=== PATIENT | female | born 1965 | race Caucasian/White ===

== ENCOUNTER → 2018-06-14 | Outpatient (CLI) | payer BC ==
--- NOTE | 2018-06-15 15:12 | NM ---
EXAMINATION TYPE: NM bone scan whole body DATE OF EXAM: 06/14/2018 COMPARISON: Lumbar spine and thoracic spine from outside institution 06/12/2017 HISTORY: Back pain Delayed whole-body scanning was performed following the injection of 23.7 mCi Tc 99m MDP. Images acq uired 3 hours post injection. FINDINGS: Mild uptake in the thoracic and lumbar spine is likely due to underlying spondylosis. Soft tissue upt kayla is normal. Uptake within the shoulders, wrists, knees, sternoclavicular joints, ankles and the fe et is likely degenerative. Uptake in the maxilla and mandible likely due to periodontal disease. IMPRESSION: Mild degenerative changes as described.
== END ==
LOC: RADNMMAIN 09:57 → EDBD 10:00
PROVIDERS: ATTEND Physical Medicine & Rehabilitation
DX: M47.816 Spondylosis without myelopathy or radiculopathy, lumbar region (principal)
CPT/HCPCS: 78306; A9503